=== PATIENT | female | born 1990 | race Caucasian/White ===

== ENCOUNTER 2021-10-20 10:34 | Day surgery (SDC) | payer BC ==
[~2021-10-20] VITALS: Ht 154.9 cm; Wt 101.1 kg
[2021-10-20 10:30] VITALS: BP 112/49; PULSE 59; TEMP 98.2
[~2021-10-20 10:34] MED LIST: BCP TD; NORCO 325 MG-51 TAB PO
[2021-10-20] MEDS ORDERED: ZYRTEC 10MG10 MG PO (11:14)
[2021-10-20] MEDS ORDERED: LEXAPRO20 MG PO (11:14)
[2021-10-20] MEDS ORDERED: TOPROL XL 50MG50 MG PO (11:15)
[2021-10-20] MEDS ORDERED: WELLBUTRIN XL300 M1 PO (11:15)
--- NOTE | 2021-10-20 11:40 | NUR ---
admitted and prepped for surgery, c/o pain and order received and medicated with toradol 15mg slow IV,
[2021-10-20 11:45] VITALS: BP 112/49; PULSE 59; TEMP 98.2
--- NOTE | 2021-10-20 12:33 | NUR ---
resting quietly in bed, states pain is better
--- NOTE | 2021-10-20 12:50 | NUR ---
to surgery per bed
[2021-10-20] MEDS ORDERED: NORCO 325 MG-51 TAB PO (14:08)
[2021-10-20] MEDS ORDERED: PYRIDIUM 100MG100 MG PO (14:08)
[2021-10-20 14:45] VITALS: BP 121/59; PULSE 92; TEMP 97.8
--- NOTE | 2021-10-20 14:45 | NUR ---
returned to room per bed from PACU, awake and alert, IV infusing per gravity, provided water nd kendy crackers per her request, instructed to call if she needs to boid, verbalizes understanding, denies needs, mother remains at bedside
[2021-10-20 15:00] VITALS: BP 130/91; PULSE 88
--- NOTE | 2021-10-20 15:00 | NUR ---
had kendy crackers and peanut butter and tolerated well without N/V
[2021-10-20 15:15] VITALS: BP 118/67; PULSE 76
--- NOTE | 2021-10-20 15:15 | NUR ---
up to bathroom and voided qs, IV fluids stopped, is ready to go home, getting up and getting dressed
--- NOTE | 2021-10-20 15:25 | NUR ---
dressed and ready for discharge, discharge instructions given to patient and her mother, verbalizes understanding, explained to her while she is on vacation to needs to try and take it easier than usual and if starts to have increase bleeding to rest and drink more water
[2021-10-20 15:27] VITALS: BP 110/77; PULSE 84; TEMP 97.2
--- NOTE | 2021-10-20 15:36 | NUR ---
discharged ambulatory
== END 2021-10-20 15:36 | disposition home or self-care (01) ==
LOC: SDCO 10:34 → SURG 10:54 → SDCO 15:36
PROVIDERS: Urology
DX: N20.1 Calculus of ureter (principal); Z87.891 Personal history of nicotine dependence
CPT/HCPCS: OP; C1726; C1769; C2617; J1885; J2405; J2704; J3010; J7030